=== PATIENT | male | born 1960 | race Caucasian/White ===

== ENCOUNTER 2018-07-31 08:42 | Emergency (ER) | payer MEDICAID ==
[~2018-07-31] VITALS: Ht 177.8 cm; Wt 95.0 kg
[~2018-07-31 08:42] MED LIST: ALPR3TAB PO; ATEN100T PO; ATOR40TA78 PO; MIRT45TA3 PO; OMEP-110 PO; PRAZ2CAP2 PO; QUET300T5 PO; TERB250T3 PO; TRAZ50TA66 PO
[2018-07-31 08:53] VITALS: BP 167/97
== END 2018-07-31 09:43 | disposition left against medical advice (07) ==
LOC: ED 09:15
DX: R53.1 Weakness (principal); R41.0 Disorientation, unspecified
CPT/HCPCS: 99283